=== PATIENT | male | born 1945 | race Caucasian/White ===

== ENCOUNTER → 2017-08-17 15:12 | Outpatient (CLI) | payer OTHER, SELFPAY ==
--- NOTE | 2017-08-17 15:16 | RAD_ITS ---
STUDY: X-RAY CHEST REASON FOR EXAM: Male, 71 years old. Cough TECHNIQUE: Frontal and lateral views of the chest. COMPARISON: None. FINDINGS: The lungs are hyperexpanded. There are coarsened interstitial markings suggestive of mild chronic fibrosis. No gross focal infiltrates. No gross effusions. Normal size heart. Normal mediastinum and arian. Normal visualized pulmonary arteries. Normal visualized aortic arch and descending thoracic aorta. There are diffuse degenerative changes of the visualized thoracic spine. Normal visualized ribs, clavicles, and shoulders. There is no demonstrated abnormality of the visualized soft tissue structures of the upper abdomen. RAD/Chest PA and Lateral IMPRESSION: There are findings consistent with COPD. There is no evidence of acute chest disease. Electronically Signed: Reza Angeles MD at 15:31 EST , Service support ,
== END ==
PROVIDERS: Family Provider Internal Medicine; PCP Internal Medicine; Visit Provider Nurse Practitioner Gerontology
DX: R09.89 Other specified symptoms and signs involving the circulatory and respiratory systems (principal)
CPT/HCPCS: 71046

== ENCOUNTER → 2017-09-13 16:29 | Outpatient (CLI) | payer OTHER, SELFPAY ==
--- NOTE | 2017-09-13 16:37 | CT_ITS ---
STUDY: CT CHEST WITH CONTRAST REASON FOR EXAM: Male, 71 years old. Abnormal chest x-ray. Evaluate for COPD. RADIATION DOSAGE (If Supplied By Facility): CTDIvol = ( 16.55 ) mGy, DLP = ( 773.8 ) mGycm TECHNIQUE: Transaxial imaging was performed following intravenous administration of 100 ml of Isovue 300 contrast material. Coronal and sagittal reformatted images were created. Individualized dose optimization techniques were used for this CT. COMPARISON: None FINDINGS: Evaluation is limited by patient motion. There are no significant emphysematous changes. There are no pulmonary infiltrates or pleural effusions. There is atelectasis noted at the lung bases. There is no pneumothorax. The heart and pericardium are within normal limits. There is no thoracic lymphadenopathy. There is no evidence of thoracic aortic aneurysm. Images through the upper abdomen demonstrate no significant abnormality. There are no destructive osseous lesions. CT/Chest WITH Contrast IMPRESSION: Bibasilar atelectasis. Otherwise, clear lungs. No evidence of COPD. Electronically Signed: Wesley Blount, at 23:24 EDT Tel , Service support ,
[2017-09-13 16:55] LABS: CREATININE FINGERSTICK 0.9 mg/dL (0.70-1.30); EGFR FINGERSTICK > 60.0000 mL/min (>60)
== END ==
PROVIDERS: Family Provider Internal Medicine; PCP Internal Medicine; Visit Provider Internal Medicine
DX: R93.8 Abnormal findings on diagnostic imaging of other specified body structures (principal)
CPT/HCPCS: 71260; Q9967

== ENCOUNTER → 2020-05-27 | Outpatient (CLI) | payer OTHER, SELFPAY | END | disposition home or self-care (01) | PROVIDERS: PCP Internal Medicine; Referring Provider Physician Assistant; Visit Provider Physician Assistant | DX: U07.1 COVID-19 (principal) | CPT/HCPCS: 87635; U0003 ==

== ENCOUNTER 2020-05-31 11:08 | Inpatient (IN) | payer OTHER, MEDICARE, SELFPAY ==
[2020-05-31] VITALS (8 sets, daily range): BP systolic 139–166; BP diastolic 72–79; PULSE 71–80; RESP 16–22; TEMP 36.3–37.9; O2SAT 92–97; BMI 36.0
--- NOTE | 2020-05-31 11:39 | EKG12_ITS ---
Test Reason : SOB Blood Pressure : / mmHG Vent. Rate : 076 BPM Atrial Rate : 076 BPM P-R Int : 162 ms QRS Dur : 104 ms QT Int : 404 ms P-R-T Axes : 018 066 046 degrees QTc Int : 454 ms Normal sinus rhythm Normal ECG Confirmed by MARGO DÍAZ, LESLI ([id number]), assignment editor EDITH EMERSON ([id number]) on 06/03/2020 1:13:36 PM Referred By: KIRA/ASIF Confirmed By:LESLI ARAGON MD
[2020-05-31 12:18] LABS: Absolute Lymphocyte Count 1.16 X10^3/uL (0.83-4.51); Absolute Neutrophil Count 4.1 X10^3/uL (2.0-7.7); Basophil# 0.01 X10^3/uL; Basophil% 0.2 % (0-1); Eosinophil# 0.08 X10^3/uL; Eosinophils% 1.3 % (0-5); Hematocrit 42.5 % (40-54); Hemoglobin 14.4 g/dL (13.0-16.5); Lymphocyte # 1.16 X10^3/ul (4.0); Lymphocyte % 19.6 % (19-41); Mean Corp Hgb Conc 33.9 g/dL (32-36); Mean Corpuscular Hgb 29.7 pg (27.0-32.0); Mean Corpuscular Volume 87.6 fL (80-94); Mean Platelet Vol. 10.1 fl (6.2-12.0); Monocyte# 0.56 X10^3/uL; Monocyte% 9.4 % (0-10); NRBC Flagged by Analyzer 0 % (0-5); Neutrophil # 4.09 X10^3/uL (2.7-7.7); Platelet Count 192 K/mm3 (150-450); RBC Distribution Width CV 11.9 % (11.6-14.6); RBC Distribution Width SD 38.5 fl (35.1-43.9); Red Blood Count 4.85 M/mm3 (4.6-6.2); White Blood Count 5.9 K/mm3 (4.4-11.0)
[2020-05-31 12:24] LABS: Anion Gap 3 (5-15); BUN 13 mg/dL (7-18); BUN/Creat Ratio 13.6 RATIO (10-20); Calcium,Total 8.9 mg/dL (8.5-10.1); Chloride 100 mmol/L (98-107); Creatinine, Serum 0.96 mg/dL (0.70-1.30); EST Glomerular Filtration Rate 82 mL/min (>60); Est Glom Filt Rate - Afr Amer 99 mL/min (>60); Estimated Creatinine Clearance 70.76 ml/min; Glucose 188 mg/dL (74-106); Potassium 3.8 mmol/L (3.5-5.1); Sodium Level 137 mmol/L (136-145)
--- NOTE | 2020-05-31 12:40 | RAD_ITS ---
STUDY: X-RAY CHEST REASON FOR EXAM: Male, 74 years old. COVID + Fina, O2 sats in 80s at home. 92% in triage. Sob, cough. TECHNIQUE: Single AP portable view of the chest. COMPARISON: Comparison is made with prior study dated 08/17/2012. FINDINGS: EKG electrodes are seen. Patchy infiltrates seen in the peripheral lateral aspect of the right lower and left lower lobes. There is no demonstrated pleural abnormality. Mild periventricular Normal mediastinum and arian. Normal visualized pulmonary arteries. Normal visualized aortic arch and descending thoracic aorta. There are diffuse degenerative changes of the visualized thoracic spine. Normal visualized ribs, clavicles, and shoulders. There is no demonstrated abnormality of the visualized soft tissue structures of the upper abdomen. RAD/Chest 1 View (Portable) IMPRESSION: Focal bibasilar infiltrates in the peripheral aspects of both right and left lower lobes. Electronically Signed: Jose May, at 12:56 EST , Service support ,
--- NOTE | 2020-05-31 13:28 | ED.VISSUMM ---
- ER Visit Summary Date of Service: 05/31/20 Chief Complaint: Shortness of breath History of Present Illness: The patient is a 74 M presenting with shortness of breath. Patient states he was tested for Covid the day after . He states the test returned positive on Wednesday. His family has also tested positive for Covid. He has been monitoring his pulse ox at home. He was told to come to the ED if his pulse ox dropped in the 80s. He states he was 86% on room air at home. He complains of subjective fever, shortness of breath, cough, diarrhea, myalgias. He states he has mild chest pain only when he coughs, otherwise no chest pain. Denies other complaints. Physical Examination: Vitals are stable. Patient is afebrile. Alert no acute distress. HEENT exam is unremarkable. Neck is supple. Lungs are clear and equal bilaterally. Heart is regular rate and rhythm. Abdomen is soft nontender nondistended. Extremities are unremarkable. Skin is warm and dry. No focal neurologic deficit. Remainder of exam is unremarkable. Emergency Department Course and Treatment: EKG is sinus rhythm rate of 76 with no acute ischemic changes. CBC, chemistries unremarkable other than glucose 188. Troponin 0.136. Chest x-ray shows Focal bibasilar infiltrates in the peripheral aspects of both right and left lower lobes. Patient was given Decadron, aspirin. He is resting comfortably on reevaluation. Discussed with hospitalist for admission. Disposition: Admission Impression: Covid pneumonia, hypoxia, abnormal troponin This note was generated with [employer] dictation software. It may contain incorrect words, spelling, and punctuation that were not noted in review of the chart prior to signing ED Disposition - Plan for ED Patient: Referrals: Randi Urbano DO [Primary Care Provider] -
[2020-05-31] MEDS: Aspirin 325 MG Tablet PO (14:19)
--- NOTE | 2020-05-31 15:53 | CON.PCM_ITS ---
Problem List (1) COVID-19 Status: Acute Reason for Consult: covid Consulted by: Dr. Calvillo History of Present Illness: The patient is a 74 year old M with h/o asthma, presented with covid, about 2 weeks of symptoms, reports white sputum, cough, dyspnea, mild fatigue. No change in taste or smell, no chest pain, no n/v. One or two episodes of diarrhea. and son were also sick and (+). Came to ED, hypoxic, admitted. Full ROS performed and neg except as noted above. - Medical History Surgical History: reviewed Allergies/Adverse Reactions: Allergies No Known Allergies Allergy (Verified 05/31/20 11:09) Home Medications: Ambulatory Orders Medication Instructions Recorded Citalopram [Celexa] 20 mg PO DAILY 05/31/20 Empagliflozin [Jardiance] 10 mg PO DAILY 05/31/20 Ibuprofen 400 mg PO DAILY PRN PRN 05/31/20 Sitagliptin Phosphate [Januvia] 100 mg PO DAILY 05/31/20 Valacyclovir HCl [Valacyclovir] 500 mg PO DAILY PRN PRN 05/31/20 - Social History Tobacco Use: non-smoker Vital Signs Temp Pulse Resp BP Pulse Ox 98.2 F 71 22 H 166/77 H 97 05/31/20 14:19 05/31/20 14:19 05/31/20 14:19 05/31/20 14:19 05/31/20 14:19 Oxygen Delivery Method Room Air Weight: 113.852 kg Body Mass Index (BMI) 36.0 Laboratory Tests Past 24 Hrs 05/31/20 05/31/20 05/31/20 11:59 11:59 11:59 WBC 5.9 RBC 4.85 Hgb 14.4 Hct 42.5 MCV 87.6 MCH 29.7 MCHC 33.9 RDW Std Deviation 38.5 RDW Coeff of Bekah 11.9 Plt Count 192 MPV 10.1 Immature Gran % (Auto) 0.500 Neut % (Auto) 69.0 Lymph % (Auto) 19.6 [place] % (Auto) 9.4 Eos % (Auto) 1.3 Baso % (Auto) 0.2 Absolute Neuts (auto) 4.1 Absolute Lymphs (auto) 1.16 Nucleated RBC % 0 Sodium 137 Potassium 3.8 Chloride 100 Carbon Dioxide 34.0 H Anion Gap 3 L BUN 13 Creatinine 0.96 Estim Creat Clear Calc 70.76 Est GFR (MDRD) Af Amer 99 Est GFR (MDRD) Non-Af 82 BUN/Creatinine Ratio 13.6 Glucose 188 H Calcium 8.9 Total Bilirubin Pending Direct Bilirubin Pending AST Pending ALT Pending Alkaline Phosphatase Pending Troponin I 0.136 H Pending Total Protein Pending Albumin Pending - Other Studies Radiology: [] reviewed Other Studies: [] Route of nutrition/ use of supplements: [] Nutritional Intake: [] IV Site: [] Yadav Catheter: [] - Physical Exam General: Alert, Oriented x3, Cooperative, No apparent distress HEENT: Atraumatic, PERRLA, EOMI Neck: Supple, No Nodes Lungs: Diminished Cardiovascular: Regular rate, Regular Rhythm Abdomen: Soft, Non Tender, Non-Distended Extremities: No edema Skin: No rashes IV Site: Peripheral, without redness Musculoskeletal: No Tenderness to Palpation of Joints or Extremities Neurological: Cranial nerves II-XII grossly intact - Assessment/Plan Antibiotics: [] Assessment/Plan: [] covid with hypoxia - sx started about 2 weeks ago but still symptomatic with some aches, fever, worsening cough and dyspnea. Will order dex to start today, ok to start remdesivir if ALT less than 10x ULN. D/w nursing re: holding until LFTs are back. Will check trop, bnp, and d-dimer now. Initial trop was elevated. On lovenox 40mg bid. Will follow, thank you, d/w Dr. Calvillo
[2020-05-31 16:53] LABS: BNP,B-Type NATRIURETIC PEPTIDE 115.5 pg/mL (0-100)
[2020-05-31 16:54] LABS: D-Dimer Quantitative (DVT/PE) 0.46 FEU/ug/m (0.27-0.49)
[2020-05-31 17:00] LABS: AST(SGOT) 22 U/L (15-37); Alanine Aminotransfer ALT/SGPT 36 U/L (16-61); Albumin, Serum 3.4 g/dL (3.2-5.0); Alkaline Phosphatase 89 U/L (45-117); Bilirubin, Direct 0.18 mg/dL (0.00-0.30); Globulin 4.7 g/dL (2.2-4.2); Protein, Total 8.1 g/dL (6.4-8.2)
[2020-05-31] MEDS: dexAMETHasone 4 MG Tablet 6 MG PO (17:13)
[2020-05-31 17:30] LABS: Bedside Glucose 157 mg/dL (70-110)
[2020-05-31] MEDS: Enoxaparin 40 MG/0.4 ML Syringe SC (17:44)
[2020-05-31] MEDS: Insulin Lispro 100 UNIT/ML INSULN.PEN SC ×2 (17:44→23:35)
--- NOTE | 2020-05-31 20:26 | HP.PCM_ITS ---
Problem List (1) Shortness of breath Status: Acute History of Present Illness Date of Admission: 05/31/20 Chief Complaint: Shortness of breath, abnormal pulse ox, fever, nonproductive cough The patient is a 74 year old M who was seen in the emergency room at [facility] with a chief complaint of shortness of breath along with cough, myalgias, fever, and diarrhea over the past few days. Patient was tested for Covid 19 the day after Thanksgiving, the test returned positive on 05/28/2020. Patient had a pulse oximeter at home today which was low in the 80s. Work-up in the emergency room included a chest x-ray which showed focal bibasi lar infiltrates, troponin was slightly elevated at 1.136, glucose was 188, CBC was unremarkable. Patient's beta natruretic peptide was slightly elevated at 115. EKG showed no evidence of ischemic changes. Patient will be admitted to [place] [address] for COVID-19 pneumonia, he will be placed on remdesivir and dexamethasone, patient will be seen in consultation by infectious diseases. Past Medical History Allergies No Known Allergies Allergy (Verified 05/31/20 11:09) Home Medications: Ambulatory Orders Medication Instructions Recorded Citalopram [Celexa] 20 mg PO QHS 05/31/20 Empagliflozin [Jardiance] 10 mg PO QHS 05/31/20 Ibuprofen 400 mg PO DAILY PRN PRN 05/31/20 Sitagliptin Phosphate [Januvia] 100 mg PO QHS 05/31/20 Valacyclovir HCl [Valacyclovir] 500 mg PO DAILY PRN PRN 05/31/20 Surgical History: noncontributory Psychiatric History: No pertinent psych hx Lives: Spouse/ Significant Other Smoking Status: Former smoker Tobacco Use: Cigarettes, Pipe Alcohol: None Drugs: None - *Family History Maternal History Items: No pertinent history Paternal History Items: No pertinent history Review of Systems Constitutional: Reports: Weakness, Fatigue. Denies: Anorexia, Chills, Fever, Night Sweats, Weight Change Eyes: Denies: Cataracts, Conjunctivae Inflammation, Double vision, Drainage HEENT: Denies: Difficulty Swallowing, Dysphasia, Ear Pain, Eye Pain, Nasal bleeding, Nasal Congestion, Post Nasal Drip Cardiovascular: Denies: Chest Pain, Claudication, Chest Pressure, Chest Tightness, Edema, Heaviness, Palpitations Respiratory: Reports: Shortness of Breath, Shortness of breath at rest, Shortness of breath upon exertion. Denies: Cough, Hemoptysis, Pleuritic Pain Gastrointestinal: Denies: Abdominal Pain, Constipation, Diarrhea, Hematemesis, Hematochezia, Nausea, Melena, Vomiting Genitourinary: Denies: Dysuria, Frequency, Hematuria, Hesitancy, Urgency Musculoskeletal: Denies: Back Pain, Foot Pain, Hand Pain, Joint Pain, Joint stiffness, Joint swelling, Joint Tenderness, Leg Pain Skin: Denies: Dryness, Jaundice, Pruritis, Rash Neurological: Denies: Blurred vision, Double vision, Change in Speech, Slurred speech, Difficulty swallowing, Focal weakness, Headaches, Incoordination, Numbness, Tingling Psychiatric: Denies: Anxiety, Depression, Homicidal Ideations, Suicidal Ideations Endocrine: Denies: Change in Body Habitus, Heat/ Cold Intolerance, Polydipsia, Polyuria Hematologic/ Lymphatic: Denies: Adenopathy, Anemia, Easy Bruising, Easy Bleeding, Petechiae, Purpura VTE Information - Inpt Only VTE Present on Admission: No VTE Mechan Device Prophylaxis: None VTE Pharm Prophylaxis ordered?: Yes Patient Problems: Active and Suspected Problems COVID-19 (Acute) Shortness of breath (Acute) - Physical Exam Vitals/I&O's: Vital Signs Temp Pulse Resp BP Pulse Ox 100.3 F H 78 18 139/79 H 95 05/31/20 15:56 05/31/20 15:56 05/31/20 17:30 05/31/20 15:56 05/31/20 15:56 Oxygen Flow Rate (L/min) 2 Oxygen Delivery Method Nasal Cannula Weight: 113.897 kg Body Mass Index (BMI) 36.0 Intake and Output for Last 24 Hours 05/29/20 05/30/20 05/31/20 23:59 23:59 23:59 Intake Total 250 / 250 Output Total 250 / 250 Balance 0 / 0 General: Alert, Oriented x3, Cooperative, No apparent distress, Well developed, Well nourished HEENT: Atraumatic, PERRLA, EOMI, Normocephalic Oral: Moist Mucosa Neck: Supple, No JVD, Negative Carotid Bruits, No Nuchal Rigidity, Trachea M idline, Thyroid Normal Size and Texture Lungs: Clear to auscultation, Normal air movement, No rhonchi, No wheeze, No rales Cardiovascular: Regular rate, Regular Rhythm, Normal S1, Normal S2, No murmurs, PMI Normal, No rub noted, No Gallop Abdomen: Bowel Sounds Present, Soft, Non Tender, Non-Distended, No hernias noted Extremities: No clubbing, No cyanosis, No edema, Capillary Refill Less than 3 Seconds Skin: No rashes, No breakdown Musculoskeletal: No Tenderness to Palpation of Joints or Extremities Neurological: Cranial nerves II-XII grossly intact, Neuro grossly intact, Sensory exam intact to light touch and pain, Coordination normal Psych/Mental Status: Normal Affect, Appropriate, Alert and oriented to time, place, person, mood and affect Laboratory Results 05/31/20 11:59: WBC 5.9, RBC 4.85, Hgb 14.4, Hct 42.5, MCV 87.6, MCH 29.7, MCHC 33.9, RDW Std Deviation 38.5, RDW Coeff of Bekah 11.9, Plt Count 192, MPV 10.1, Immature Gran % (Auto) 0.500, Neut % (Auto) 69.0, Lymph % (Auto) 19.6, [place] % (Auto) 9.4, Eos % (Auto) 1.3, Baso % (Auto) 0.2, Absolute Neuts (auto) 4.1, Absolute Lymphs (auto) 1.16, Nucleated RBC % 0 05/31/20 11:59: Sodium 137, Potassium 3.8, Chloride 100, Carbon Dioxide 34.0 H, Anion Gap 3 L, BUN 13, Creatinine 0.96, Estim Creat Clear Calc 70.76, Est GFR (MDRD) Af Amer 99, Est GFR (MDRD) Non-Af 82, BUN/Creatinine Ratio 13.6, Glucose 188 H, Calcium 8.9, Troponin I 0.136 H 05/31/20 16:12: Total Bilirubin 0.60, Direct Bilirubin 0.18, AST 22, ALT 36, Alkaline Phosphatase 89, Troponin I 0.130 H, Total Protein 8.1, Albumin 3.4, Globulin 4.7 H 05/31/20 16:12: D-Dimer Quant (PE/DVT) 0.46 05/31/20 16:12: B-Natriuretic Peptide 115.5 H 05/31/20 17:10: POC Glucose 157 H 05/31/20 19:01: Troponin I 0.121 H Current Medications Citalopram Hydrobromide (Citalopram 20 Mg Tablet) 20 mg PO DAILY [facility] Dexamethasone (Dexamethasone 4 Mg Tablet) 6 mg PO DAILY [facility] Stop: 06/09/20 10:01 Last Admin: 05/31/20 17:13 Dose: 6 mg Documented by: Empagliflozin (Empagliflozin 10 Mg Tablet) 10 mg PO DAILY [facility] Enoxaparin Sodium (Enoxaparin 40 Mg/0.4 Ml Syringe) 40 mg SC BID [facility] Last Admin: 05/31/20 17:44 Dose: 40 mg Documented by: Remdesivir 100 mg/ Sodium (Chloride) 250 mls @ 125 mls/hr IV DAILY [facility] Stop: 06/04/20 11:59 Ibuprofen (Ibuprofen 400 Mg Tablet) 400 mg PO DAILY PRN PRN PRN Reason: Pain 1-10 or Fever Influenza Virus Vaccine Quadrival (Influenza Vaccine (6mos+)/Pf 0.5 Ml Syringe) 0.5 ml IM .ONCE ONE Stop: 06/01/20 10:01 Insulin Human Lispro (Insulin Lispro 100 Unit/Ml Insuln.Pen) 0 unit SC ACHS SC H; Protocol Last Admin: 05/31/20 17:44 Dose: 2 units Documented by: Linagliptin (Linagliptin 5 Mg Tablet) 5 mg PO DAILY [facility] Nutritional Formula (Lactose Free) (Glucerna Shake 120 Ml Liquid) 120 ml PO 4X/DAY [facility] Last Admin: 05/31/20 17:50 Dose: Not Given Documented by: Ondansetron HCl (Ondansetron 4 Mg/2 Ml Vial) 4 mg IV Q8H PRN PRN PRN Reason: NAUSEA/VOMITING Senna/Docusate Sodium (Senna/Docusate Sodium 1 Tablet) 2 tablet PO DAILY PRN PRN PRN Reason: CONSTIPATION Sodium Chloride (0.9% Saline Lock 10 Ml Syringe) 10 - 40 ml IV UD PRN PRN Reason: SALINE FLUSH Assessment/Plan All Active Problems COVID-19 (Acute) Shortness of breath (Acute) Contact with and (suspected) exposure to other viral communicable diseases (Acute) #1 COVID-19 pneumonia-patient will be admitted to [facility], he will be placed on remdesivir and dexamethasone, he will be seen in consultation by infectious diseases #2 hypoxia secondary to #1-patient's pulse ox will be monitored #3 type 2 diabetes-patient's blood sugars will be monitored #4 chronic depression-patient will remain on Celexa #5 chronic recurrent genital herpes-patient takes valacyclovir intermittently for flareups, he does not take it on a daily basis. Inpatient E&M: 14287 Init Hosp L3
[2020-05-31] MEDS: Glucerna Shake 120 ML LIQUID PO (23:31)
[2020-05-31] MEDS: guaiFENesin 10 ML UDC (200MG/10ML) PO (23:35)
[2020-06-01 00:36] LABS: Bedside Glucose 279 mg/dL (70-110)
[2020-06-01 03:01] VITALS: BP 162/80; PULSE 71; RESP 18; TEMP 36.5; O2SAT 94
[2020-06-01] MEDS: guaiFENesin 10 ML UDC (200MG/10ML) PO ×2 (03:09→21:49)
[2020-06-01] MEDS: Insulin Lispro 100 UNIT/ML INSULN.PEN SC ×4 (06:30→21:53)
[2020-06-01 07:08] LABS: Hemoglobin 14.1 g/dL (13.0-16.5); Mean Corp Hgb Conc 33.6 g/dL (32-36); Mean Corpuscular Volume 86.4 fL (80-94); Platelet Count 197 K/mm3 (150-450); RBC Distribution Width CV 11.8 % (11.6-14.6); RBC Distribution Width SD 37.7 fl (35.1-43.9); Red Blood Count 4.86 M/mm3 (4.6-6.2); White Blood Count 4.8 K/mm3 (4.4-11.0)
[2020-06-01 07:20] VITALS: O2SAT 94
[2020-06-01 07:49] LABS: ALB/GLOB Ratio 0.7 RATIO (0.9-2.4); AST(SGOT) 21 U/L (15-37); Alanine Aminotransfer ALT/SGPT 39 U/L (16-61); Albumin, Serum 3.1 g/dL (3.2-5.0); Alkaline Phosphatase 89 U/L (45-117); Anion Gap 6 (5-15); BUN 13 mg/dL (7-18); BUN/Creat Ratio 17.6 RATIO (10-20); Calcium,Total 9.1 mg/dL (8.5-10.1); Chloride 101 mmol/L (98-107); Creatinine, Serum 0.74 mg/dL (0.70-1.30); EST Glomerular Filtration Rate 111 mL/min (>60); Est Glom Filt Rate - Afr Amer 134 mL/min (>60); Estimated Creatinine Clearance 67.93 ml/min; Globulin 4.6 g/dL (2.2-4.2); Glucose 204 mg/dL (74-106); Protein, Total 7.7 g/dL (6.4-8.2); Sodium Level 134 mmol/L (136-145)
[2020-06-01 08:30] VITALS: O2SAT 87
[2020-06-01 08:46] VITALS: BP 149/76; PULSE 78; RESP 18; TEMP 36.4; O2SAT 92
[2020-06-01] MEDS: dexAMETHasone 4 MG Tablet 6 MG PO (08:47)
[2020-06-01] MEDS: Enoxaparin 40 MG/0.4 ML Syringe SC ×2 (08:47→21:49)
[2020-06-01] MEDS: Empagliflozin 10 MG Tablet PO (08:47)
[2020-06-01] MEDS: LINAGLIPTIN 5 MG TABLET PO (08:47)
[2020-06-01] MEDS: Citalopram 20 MG Tablet PO (08:47)
[2020-06-01 10:40] LABS: Bedside Glucose 201 mg/dL (70-110)
[2020-06-01] MEDS: Glucerna Shake 120 ML LIQUID PO (10:45)
[2020-06-01] MEDS: 0.9% Saline Lock 10 ML Syringe IV (10:45)
[2020-06-01 11:26] LABS: Bedside Glucose 266 mg/dL (70-110)
--- NOTE | 2020-06-01 13:33 | PN_ITS ---
Patient Problems: Active and Suspected Problems COVID-19 (Acute) Shortness of breath (Acute) Subjective: Patient seen and examined. He was admitted with a complaint of shortness of breath and found to be Covid positive. He feels much better this morning. He feels like his breathing is improving. Remains on 2 L of oxygen. Review of systems otherwise negative. Vitals/I&O's: Vital Signs Temp Pulse Resp BP Pulse Ox 97.6 F L 78 18 149/76 H 92 06/01/20 08:46 06/01/20 08:46 06/01/20 08:46 06/01/20 08:46 06/01/20 08:46 Oxygen Flow Rate (L/min) 2 Oxygen Delivery Method Nasal Cannula Weight: 251 lb 1.6 oz Body Mass Index (BMI) 36.0 Intake and Output for Last 24 Hours 05/30/20 05/31/20 06/01/20 23:59 23:59 23:59 Intake Total 250 / 250 Output Total 250 / 250 Balance 0 / 0 General: Alert, Oriented x3, Cooperative, No apparent distress HEENT: Atraumatic, PERRLA, EOMI, Normocephalic Oral: Dry Mucosa Neck: Supple, No JVD, Negative Carotid Bruits Lungs: - - diminished breath sounds bibasally, no wheezes or crackles. on 2L of oxygen. Cardiovascular: Regular rate, Regular Rhythm, Normal S1, Normal S2, No murmurs Abdomen: Bowel Sounds Present, Soft, Non Tender, Non-Distended, No Hepato- splenomegaly Extremities: No clubbing, No cyanosis, No edema, Capillary Refill Less than 3 Seconds Skin: No rashes, No breakdown Musculoskeletal: No Tenderness to Palpation of Joints or Extremities Lymphatic: No Cervical, Supraclavicular, or Inguinal Adenopathy Neurological: Cranial nerves II-XII grossly intact, Neuro grossly intact, Motor Exam 5/5 strength throughout Psych/Mental Status: Normal Affect, Appropriate, Alert and oriented to time, place, person, mood and affect Laboratory Results 05/31/20 16:12: Total Bilirubin 0.60, Direct Bilirubin 0.18, AST 22, ALT 36, Alkaline Phosphatase 89, Troponin I 0.130 H, Total Protein 8.1, Albumin 3.4, Globulin 4.7 H 05/31/20 16:12: D-Dimer Quant (PE/DVT) 0.46 05/31/20 16:12: B-Natriuretic Peptide 115.5 H 05/31/20 17:10: POC Glucose 157 H 05/31/20 19:01: Troponin I 0.121 H 05/31/20 23:34: POC Glucose 279 H 06/01/20 06:28: POC Glucose 201 H 06/01/20 06:40: WBC 4.8, RBC 4.86, Hgb 14.1, Hct 42.0, MCV 86.4, MCH 29.0, MCHC 33.6, RDW Std Deviation 37.7, RDW Coeff of Bekah 11.8, Plt Count 197, MPV 10.0 06/01/20 06:40: Sodium 134 L, Potassium 4.0, Chloride 101, Carbon Dioxide 27.0, Anion Gap 6, BUN 13, Creatinine 0.74, Estim Creat Clear Calc 67.93, Est GFR (MDRD) Af Amer 134, Est GFR (MDRD) Non-Af 111, BUN/Creatinine Ratio 17.6, Glucose 204 H, Calcium 9.1, Total Bilirubin 0.40, AST 21, ALT 39, Alkaline Phosphatase 89, Total Protein 7.7, Albumin 3.1 L, Globulin 4.6 H, Albumin/Globulin Ratio 0.7 L 06/01/20 10:49: POC Glucose 266 H Diagnostic Data Chest X-Ray 05/31/20 12:40 IMPRESSION: Focal bibasilar infiltrates in the peripheral aspects of both right and left lower lobes. Electronically Signed: Jose Yadira, at 12:56 EST , Service support , Current Medications Citalopram Hydrobromide (Citalopram 20 Mg Tablet) 20 mg PO DAILY [facility] Last Admin: 06/01/20 08:47 Dose: 20 mg Documented by: Dexamethasone (Dexamethasone 4 Mg Tablet) 6 mg PO DAILY [facility] Stop: 06/09/20 10:01 Last Admin: 06/01/20 08:47 Dose: 6 mg Documented by: Empagliflozin (Empagliflozin 10 Mg Tablet) 10 mg PO DAILY [facility] Last Admin: 06/01/20 08:47 Dose: 10 mg Documented by: Enoxaparin Sodium (Enoxaparin 40 Mg/0.4 Ml Syringe) 40 mg SC BID [facility] Last Admin: 06/01/20 08:47 Dose: 40 mg Documented by: Guaifenesin (Guaifenesin 10 Ml Udc (200mg/10ml)) 10 ml PO Q4H PRN PRN PRN Reason: COUGH Last Admin: 06/01/20 03:09 Dose: 10 ml Documented by: Remdesivir 100 mg/ Sodium (Chloride) 250 mls @ 125 mls/hr IV DAILY [facility] Stop: 06/04/20 11:59 Last Admin: 06/01/20 10:44 Dose: 125 mls/hr Documented by: Ibuprofen (Ibuprofen 400 Mg Tablet) 400 mg PO DAILY PRN PRN PRN Reason: Pain 1-10 or Fever Insulin Human Lispro (Insulin Lispro 100 Unit/Ml Insuln.Pen) 0 unit SC ACHS [facility]; Protocol Last Admin: 06/01/20 10:49 Dose: 6 units Documented by: Linagliptin (Linagliptin 5 Mg Tablet) 5 mg PO DAILY [facility] Last Admin: 06/01/20 08:47 Dose: 5 mg Documented by: Nutritional Formula (Lactose Free) (Glucerna Shake 120 Ml Liquid) 120 ml PO 4X/DAY [facility] Last Admin: 06/01/20 10:45 Dose: 120 ml Documented by: Ondansetron HCl (Ondansetron 4 Mg/2 Ml Vial) 4 mg IV Q8H PRN PRN PRN Reason: NAUSEA/VOMITING Senna/Docusate Sodium (Senna/Docusate Sodium 1 Tablet) 2 tablet PO DAILY PRN PRN PRN Reason: CONSTIPATION Sodium Chloride (0.9% Saline Lock 10 Ml Syringe) 10 - 40 ml IV UD PRN PRN Reason: SALINE FLUSH Last Admin: 06/01/20 10:45 Dose: 10 ml Documented by: Medical Necessity - Tobacco Use Smoking Status: Former smoker Tobacco Use: Cigarettes, Pipe Assessment/Plan All Active Problems COVID-19 (Acute) Shortness of breath (Acute) Contact with and (suspected) exposure to other viral communicable diseases (Acute) #Acute hypoxic respiratory insufficiency due to COVID 19 infection * on 2L of oxygen by nasal canula * on decadrone and remdesivir * titrate oxygen to maintain sats >90% * #COVID 19 infection: as above #Intermediate troponins. * Initial troponin was 0.136 and subsequently trended down to 0.121. * Patient did not have any chest pain. * This likely related to COVID-19 infection. * Will monitor for now. * #History of asthma; on breathing treatment with bronchodilators # Chronic depression; on Celexa #Type 2 diabetes mellitus: On Jardiance. Insulin sliding scale. Accu-Cheks AC at bedtime. #Recurrent herpes: on vaclacyclovir for flareups DVT prophylaxis; lovenox 40mg bid. D dimer was only 0.46 Inpatient E&M: 58045 Subs Hosp L2
--- NOTE | 2020-06-01 13:46 | PCM.NTREPORT ---
Nutrition Therapy Report - History Nutrition Services has been consulted to:: Manage nutrient details of diet order Current diet / nutrition support order:: consistent cho 1800 linda - Anthropometric Measurements Height:: 5 ft 10 in Weight:: 113.897 kg Body Mass Index (BMI):: 36.0 - Relevant Labs Relevant Labs:: Sodium 134 mmol/L (136-145) L 06/01/20 06:40 Carbon Dioxide 34.0 mmol/L (21.0-32.0) H 05/31/20 11:59 Anion Gap 3 (5-15) L 05/31/20 11:59 Glucose 204 mg/dL (74-106) H 06/01/20 06:40 Troponin I 0.121 ng/mL (<0.045) H 05/31/20 19:01 B-Natriuretic Peptide 115.5 pg/mL (0-100) H 05/31/20 16:12 Albumin 3.1 g/dL (3.2-5.0) L 06/01/20 06:40 Globulin 4.6 g/dL (2.2-4.2) H 06/01/20 06:40 Albumin/Globulin Ratio 0.7 RATIO (0.9-2.4) L 06/01/20 06:40 - Assessment Food / Nutrition-Related History:: Talked to pt on phone r/t covid isolation. Pt reports regular diet at home and doesn't check bld gluc levels - only gets done at the doctor's office. Declines need for diet education at this time. He has been eating poorly x 2 wks, but improved intake now. No issues eating/swallowing noted. Reports decreased intake d/t covid and had been reading a good book so skipped meals to read. UBW: 119.748 kg - wt loss of 4.9% x 2 wks (sig for malnutrition). Accepting of ONS. On steroid which may further elevate gluc levels. [ End ] - Nutrition Diagnosis Problem / Etiology / Signs & Symptoms (PES):: Pt w/ s/s of malnutrition r/t covid aeb 4.9% wt loss and <50% po intake at meals x 2 wks. Evidence of Malnutrition Exists:: Yes Severe PCM:: Acute Illness - Nutrition Intervention Nutrition Prescription:: [id number] linda / 90-110 gm pro/day - Food / Nutrient Delivery Interventions Summary of nutrition intervention:: Will liberalize diet to Regular d/t s/s of malnutrition. Will change ONS from medpass to meals to help cluster nsg tasks. [ End ] Nutrition education provided?: No - MNT Monitoring Further MNT monitoring and evaluation required?: Yes MNT Follow-up in:: 3-5 days - please call RD/LD if questions [phone]
[2020-06-01 13:49] VITALS: BMI 36.0
[2020-06-01 14:24] VITALS: BP 134/75; PULSE 72; RESP 18; TEMP 36.6; O2SAT 95
--- NOTE | 2020-06-01 14:40 | CASEMGMT ---
RN CM called patient in room for initial transition planning/care coordination assessment. RN CM introduced self and role at [facility]. Patient alert and oriented. Patient willing to participate in assessment and is able to answer all questions appropriately. Care providers, pharmacy, and demographics verified. Patient wishes to discharge home, denies need for home health at this time. Patient states he has no further needs or concerns at this time. CM to follow for discharge planning needs that may arise. PCP: Sundeep Specialists: none Preferred Pharmacy: [facility] Insurance: PRITESH Wilkins Prescription Benefit: yes Living Will/HPOA: yes López Emmanuel LNOK: Living Arrangements: Patient lives with . Patient state he is independent at home. Transportation: self, DME/HHC: Patient denies DME or previous HHC. After reviewing in-network DME companies, patient agreeable to [facility] for possible home oxygen at discharge. Disposition Plan: Patient to discharge home with family support and follow-up plans in place. Shani ROMEO, RN, CM
[2020-06-01 16:40] LABS: Bedside Glucose 214 mg/dL (70-110)
[2020-06-01 20:24] VITALS: BP 153/78; PULSE 65; RESP 16; TEMP 36.6; O2SAT 94
[2020-06-01 22:20] LABS: Bedside Glucose 220 mg/dL (70-110)
[2020-06-02] VITALS (8 sets, daily range): BP systolic 136–149; BP diastolic 65–90; PULSE 60–76; RESP 16–20; TEMP 36.5–37.4; O2SAT 92–96
[2020-06-02 04:59] LABS: Hematocrit 42.5 % (40-54); Hemoglobin 14.3 g/dL (13.0-16.5); Mean Corp Hgb Conc 33.6 g/dL (32-36); Mean Corpuscular Hgb 29.1 pg (27.0-32.0); Mean Corpuscular Volume 86.6 fL (80-94); Platelet Count 214 K/mm3 (150-450); RBC Distribution Width CV 11.8 % (11.6-14.6); RBC Distribution Width SD 37.7 fl (35.1-43.9); Red Blood Count 4.91 M/mm3 (4.6-6.2); White Blood Count 7.7 K/mm3 (4.4-11.0)
[2020-06-02 05:23] LABS: ALB/GLOB Ratio 0.7 RATIO (0.9-2.4); AST(SGOT) 17 U/L (15-37); Alanine Aminotransfer ALT/SGPT 36 U/L (16-61); Alkaline Phosphatase 78 U/L (45-117); Anion Gap 7 (5-15); BUN 16 mg/dL (7-18); BUN/Creat Ratio 21.7 RATIO (10-20); Chloride 102 mmol/L (98-107); Creatinine, Serum 0.74 mg/dL (0.70-1.30); EST Glomerular Filtration Rate 111 mL/min (>60); Est Glom Filt Rate - Afr Amer 134 mL/min (>60); Estimated Creatinine Clearance 67.93 ml/min; Globulin 4.4 g/dL (2.2-4.2); Glucose 156 mg/dL (74-106); Potassium 3.9 mmol/L (3.5-5.1); Protein, Total 7.4 g/dL (6.4-8.2); Sodium Level 137 mmol/L (136-145)
[2020-06-02 06:55] LABS: Bedside Glucose 148 mg/dL (70-110)
[2020-06-02] MEDS: dexAMETHasone 4 MG Tablet 6 MG PO (09:50)
[2020-06-02] MEDS: Enoxaparin 40 MG/0.4 ML Syringe SC ×2 (09:50→23:07)
[2020-06-02] MEDS: Empagliflozin 10 MG Tablet PO (09:51)
[2020-06-02] MEDS: LINAGLIPTIN 5 MG TABLET PO (09:51)
[2020-06-02] MEDS: Citalopram 20 MG Tablet PO (09:52)
--- NOTE | 2020-06-02 11:54 | PN_ITS ---
Patient Problems: Active and Suspected Problems COVID-19 (Acute) Shortness of breath (Acute) Subjective: Patient seen and examined. He complains of feeling of tightness in his lungs. He remains on 2 L of oxygen and feels like his breathing is getting better. He denies any chest pain, palpitations, dizziness, nausea vomiting or diarrhea. Review of systems otherwise negative. Vitals/I&O's: Vital Signs Temp Pulse Resp BP Pulse Ox 97.7 F L 66 18 145/66 H 95 06/02/20 08:24 06/02/20 08:24 06/02/20 08:24 06/02/20 08:24 06/02/20 08:24 Oxygen Flow Rate (L/min) 2 Oxygen Delivery Method Nasal Cannula Weight: 251 lb 1.598 oz Body Mass Index (BMI) 36.0 Intake and Output for Last 24 Hours 05/31/20 06/01/20 06/02/20 23:59 23:59 23:59 Intake Total 250 / 250 750 / 1350 925 / 925 Output Total 250 / 250 Balance 0 / 0 750 / 1350 925 / 925 General: Alert, Oriented x3, Cooperative, No apparent distress HEENT: Atraumatic, PERRLA, EOMI, Normocephalic Oral: Dry Mucosa Neck: Supple, No JVD, Negative Carotid Bruits Lungs: Diminished - diminished breath sounds bibasally, no wheezes or crackles. on 2L of oxygen Cardiovascular: Regular rate, Regular Rhythm, Normal S1, Normal S2, No murmurs Abdomen: Bowel Sounds Present, Soft, Non Tender, Non-Distended, No Hepato- splenomegaly Extremities: No edema, Capillary Refill Less than 3 Seconds Skin: No rashes, No breakdown Musculoskeletal: No Tenderness to Palpation of Joints or Extremities Lymphatic: No Cervical, Supraclavicular, or Inguinal Adenopathy Neurological: Cranial nerves II-XII grossly intact, Neuro grossly intact, Motor Exam 5/5 strength throughout Psych/Mental Status: Normal Affect, Appropriate, Alert and oriented to time, place, person, mood and affect Laboratory Results 06/01/20 16:21: POC Glucose 214 H 06/01/20 21:52: POC Glucose 220 H 06/02/20 04:46: WBC 7.7, RBC 4.91, Hgb 14.3, Hct 42.5, MCV 86.6, MCH 29.1, MCHC 33.6, RDW Std Deviation 37.7, RDW Coeff of Bekah 11.8, Plt Count 214, MPV 10.0 06/02/20 04:46: Sodium 137, Potassium 3.9, Chloride 102, Carbon Dioxide 28.0, Anion Gap 7, BUN 16, Creatinine 0.74, Estim Creat Clear Calc 67.93, Est GFR (MDRD) Af Amer 134, Est GFR (MDRD) Non-Af 111, BUN/Creatinine Ratio 21.7 H, Glucose 156 H, Calcium 9.0, Total Bilirubin 0.40, AST 17, ALT 36, Alkaline Phosphatase 78, Total Protein 7.4, Albumin 3.0 L, Globulin 4.4 H, Albumin/Globulin Ratio 0.7 L 06/02/20 06:47: POC Glucose 148 H Current Medications Citalopram Hydrobromide (Citalopram 20 Mg Tablet) 20 mg PO DAILY [facility] Last Admin: 06/02/20 09:52 Dose: 20 mg Documented by: Dexamethasone (Dexamethasone 4 Mg Tablet) 6 mg PO DAILY [facility] Stop: 06/09/20 10:01 Last Admin: 06/02/20 09:50 Dose: 6 mg Documented by: Empagliflozin (Empagliflozin 10 Mg Tablet) 10 mg PO DAILY [facility] Last Admin: 06/02/20 09:51 Dose: 10 mg Documented by: Enoxaparin Sodium (Enoxaparin 40 Mg/0.4 Ml Syringe) 40 mg SC BID [facility] Last Admin: 06/02/20 09:50 Dose: 40 mg Documented by: Guaifenesin (Guaifenesin 10 Ml Udc (200mg/10ml)) 10 ml PO Q4H PRN PRN PRN Reason: COUGH Last Admin: 06/01/20 21:49 Dose: 10 ml Documented by: Remdesivir 100 mg/ Sodium (Chloride) 250 mls @ 125 mls/hr IV DAILY [facility] Stop: 06/04/20 11:59 Last Admin: 06/02/20 10:53 Dose: 125 mls/hr Documented by: Ibuprofen (Ibuprofen 400 Mg Tablet) 400 mg PO DAILY PRN PRN PRN Reason: Pain 1-10 or Fever Insulin Human Lispro (Insulin Lispro 100 Unit/Ml Insuln.Pen) 0 unit SC [facility]; Protocol Last Admin: 06/02/20 06:48 Dose: Not Given Documented by: Linagliptin (Linagliptin 5 Mg Tablet) 5 mg PO DAILY [facility] Last Admin: 06/02/20 09:51 Dose: 5 mg Documented by: Ondansetron HCl (Ondansetron 4 Mg/2 Ml Vial) 4 mg IV Q8H PRN PRN PRN Reason: NAUSEA/VOMITING Senna/Docusate Sodium (Senna/Docusate Sodium 1 Tablet) 2 tablet PO DAILY PRN PRN PRN Reason: CONSTIPATION Sodium Chloride (0.9% Saline Lock 10 Ml Syringe) 10 - 40 ml IV UD PRN PRN Reason: SALINE FLUSH Last Admin: 06/01/20 10:45 Dose: 10 ml Documented by: STROKE Vital Signs/Narrative: Vital Signs Temp Pulse Resp BP Pulse Ox 06/02/20 08:24 97.7 F L 66 18 145/66 H 95 Medical Necessity - Tobacco Use Smoking Status: Former smoker Tobacco Use: Cigarettes, Pipe Assessment/Plan All Active Problems COVID-19 (Acute) Shortness of breath (Acute) Contact with and (suspected) exposure to other viral communicable diseases (Acute) #Acute hypoxic respiratory insufficiency due to COVID 19 infection * on 2L of oxygen by nasal canula * on decadrone and remdesivir * titrate oxygen to maintain sats >90% * #COVID 19 infection: as above #Intermediate troponins. * Initial troponin was 0.136 and subsequently trended down to 0.121. * Patient did not have any chest pain. * This likely related to COVID-19 infection. * Will monitor for now. to have 2D echo on outpatient basis, or if he develops chest pain during this admission. * #History of asthma; on breathing treatment with bronchodilators # Chronic depression; on Celexa #Type 2 diabetes mellitus: On Jardiance. Insulin sliding scale. Accu-Cheks AC at bedtime. #Recurrent herpes: on vaclacyclovir for flareups DVT prophylaxis; lovenox 40mg bid. Inpatient E&M: 68375 Subs Hosp L2
[2020-06-02] MEDS: Insulin Lispro 100 UNIT/ML INSULN.PEN SC ×3 (12:29→23:07)
[2020-06-02 12:40] LABS: Bedside Glucose 160 mg/dL (70-110)
[2020-06-02 17:45] LABS: Bedside Glucose 182 mg/dL (70-110)
[2020-06-02 23:21] LABS: Bedside Glucose 185 mg/dL (70-110)
[2020-06-03 01:00] VITALS: O2SAT 93
[2020-06-03 04:00] VITALS: BP 163/91; PULSE 68; RESP 16; TEMP 36.6; O2SAT 93
[2020-06-03 06:02] LABS: Hematocrit 42.6 % (40-54); Hemoglobin 14.2 g/dL (13.0-16.5); Mean Corp Hgb Conc 33.3 g/dL (32-36); Mean Corpuscular Hgb 28.8 pg (27.0-32.0); Mean Corpuscular Volume 86.4 fL (80-94); Mean Platelet Vol. 9.9 fl (6.2-12.0); Platelet Count 250 K/mm3 (150-450); RBC Distribution Width CV 11.9 % (11.6-14.6); RBC Distribution Width SD 37.9 fl (35.1-43.9); Red Blood Count 4.93 M/mm3 (4.6-6.2); White Blood Count 7.8 K/mm3 (4.4-11.0)
[2020-06-03 06:35] LABS: ALB/GLOB Ratio 0.6 RATIO (0.9-2.4); AST(SGOT) 21 U/L (15-37); Alanine Aminotransfer ALT/SGPT 37 U/L (16-61); Albumin, Serum 2.9 g/dL (3.2-5.0); Alkaline Phosphatase 73 U/L (45-117); Anion Gap 7 (5-15); BUN 19 mg/dL (7-18); Calcium,Total 8.6 mg/dL (8.5-10.1); Chloride 103 mmol/L (98-107); Creatinine, Serum 0.73 mg/dL (0.70-1.30); EST Glomerular Filtration Rate 112 mL/min (>60); Est Glom Filt Rate - Afr Amer 135 mL/min (>60); Estimated Creatinine Clearance 67.93 ml/min; Globulin 4.5 g/dL (2.2-4.2); Glucose 115 mg/dL (74-106); Protein, Total 7.4 g/dL (6.4-8.2); Sodium Level 135 mmol/L (136-145)
[2020-06-03 07:00] VITALS: O2SAT 93
[2020-06-03 07:00] LABS: Bedside Glucose 120 mg/dL (70-110)
[2020-06-03 10:52] VITALS: BP 147/74; PULSE 69; RESP 18; TEMP 36.8; O2SAT 93
[2020-06-03] MEDS: LINAGLIPTIN 5 MG TABLET PO (11:00)
[2020-06-03] MEDS: Enoxaparin 40 MG/0.4 ML Syringe SC (11:00)
[2020-06-03] MEDS: Citalopram 20 MG Tablet PO (11:00)
[2020-06-03] MEDS: dexAMETHasone 4 MG Tablet 6 MG PO (11:01)
[2020-06-03] MEDS: Empagliflozin 10 MG Tablet PO (11:01)
[2020-06-03 11:16] LABS: Bedside Glucose 140 mg/dL (70-110)
--- NOTE | 2020-06-03 13:08 | DCINST_ITS ---
- Discharge Diagnoses Current Active Problems: Current Active and Chronic Problems COVID-19 (Acute) Shortness of breath (Acute) You will use the following diet at home:: Regular Your food should be the consistency of: Regular Your liquids should be the consistency of: Regular/Thin Discharge Activity: Return to Normal Activity Call your doctor if you observe: Fever of 101 or Higher, Shortness of breath, Chest pain Additional Instructions: Self isolate for at least 21 days since symptoms began or the first postive COVID-19 test (05/27/2020) AND at least one day (24 hours) have passed since resolution of fever without the use of fever-reducing agents AND improvement of symptoms (e.g., cough, shortness of breath) When around people in the same room, wear a face mask. Individuals also in the room should wear a mask. If possible, use a different bathroom and bedroom. Perform adequate hand hygiene. Avoid sharing dishes, glasses, etc. Family members with close contact with you and/or postive for COVID-19 should follow these instructions. Allergies/Adverse Reactions: Allergies No Known Allergies Allergy (Verified 05/31/20 11:09) Medications to take at Discharge Citalopram [Celexa] 20 mg PO QHS 05/31/20 Empagliflozin [Jardiance] 10 mg PO QHS 05/31/20 Ibuprofen 400 mg PO DAILY PRN PRN 05/31/20 Sitagliptin Phosphate [Januvia] 100 mg PO QHS 05/31/20 Valacyclovir HCl [Valacyclovir] 500 mg PO DAILY PRN PRN 05/31/20 Aspirin 81 mg PO DAILY #1 tab.chew 06/03/20 Dexamethasone [Decadron] 6 mg PO DAILY #6 tab 06/03/20 The following prescriptions were given: Aspirin 81 mg PO DAILY #1 tab.chew Dexamethasone [Decadron] 6 mg PO DAILY #6 tab Transmission Status: Received by [id number] Primary Care Physician: Randi Urbano DO [Primary Care Provider] - Within 2 Weeks Test Results: Test results from this visit will be discussed in further detail at your follow- up appointment, if applicable. Please Follow Up With: [facility] When: 2-4 weeks Proposed Discharge Date: 06/03/20
--- NOTE | 2020-06-03 13:11 | PCM.DC.SUM ---
Discharge Date and Diagnosis - Problem List Patient Problems: Active and Suspected Problems COVID-19 (Acute) Shortness of breath (Acute) Date of Admission: 05/31/20 Date of Discharge: 06/03/20 - Primary Discharge Diagnosis Acute Problems: Active Problems COVID-19 (Acute) Shortness of breath (Acute) elevated troponins Hospital Course and Treatment Imaging Results: Clinical Impression(s) from Imaging Studies Chest X-Ray 05/31/20 12:40 IMPRESSION: Focal bibasilar infiltrates in the peripheral aspects of both right and left lower lobes. Electronically Signed: Jose May, at 12:56 EST , Service support , Operations: None Procedures: None Summary of Care Provided: The patient is a 74 year old M presents with shortness of breath and a low pulse ox at home. Patient was tested for COVID-19 and came back positive. Patient was treated with dexamethasone and remdesivir. Patient is overall improving and has had no further events during this hospitalization. Patient will be discharged with dexamethasone complete a 10-day course. Patient's and son are currently sick. Patient advised to have a 21-day quarantine from the onset of his symptoms. Patient had some minimally elevated troponins. Phil Campbell to be related with type II demand and recommend outpatient follow-up with cardiology and echocardiogram. Patient be started on aspirin 81 mg daily. [] Patient Problems: Active and Suspected Problems COVID-19 (Acute) Shortness of breath (Acute) - Physical Exam Vitals/I&O's: Vital Signs Temp Pulse Resp BP Pulse Ox 36.8 C 69 18 147/74 H 93 06/03/20 10:52 06/03/20 10:52 06/03/20 10:52 06/03/20 10:52 06/03/20 10:52 Oxygen Flow Rate (L/min) 2 Oxygen Delivery Method Room Air Weight: 113.897 kg Body Mass Index (BMI) 36.0 Intake and Output for Last 24 Hours 06/01/20 06/02/20 06/03/20 23:59 23:59 23:59 Intake Total 750 / 1350 2375 / 2775 700 / 700 Balance 750 / 1350 2375 / 2775 700 / 700 General: Alert, Cooperative, No apparent distress HEENT: Atraumatic, Normocephalic Oral: Moist Mucosa, No Gingival or Mucosal Lesions/ Ulcerations Neck: No Nodes, Thyroid Normal Size and Texture Lungs: Clear to auscultation, Normal air movement, No rhonchi, No wheeze Cardiovascular: Regular rate, Regular Rhythm, Normal S1, Normal S2 Abdomen: Bowel Sounds Present, Soft, Non Tender, Non-Distended, No Hepato-splenomegaly Psych/Mental Status: Normal Affect, Appropriate Laboratory Results 06/02/20 16:13: POC Glucose 182 H 06/02/20 23:07: POC Glucose 185 H 06/03/20 05:55: WBC 7.8, RBC 4.93, Hgb 14.2, Hct 42.6, MCV 86.4, MCH 28.8, MCHC 33.3, RDW Std Deviation 37.9, RDW Coeff of Bekah 11.9, Plt Count 250, MPV 9.9 06/03/20 05:55: Sodium 135 L, Potassium 4.0, Chloride 103, Carbon Dioxide 25.0, Anion Gap 7, BUN 19 H, Creatinine 0.73, Estim Creat Clear Calc 67.93, Est GFR (MDRD) Af Amer 135, Est GFR (MDRD) Non-Af 112, BUN/Creatinine Ratio 26.0 H, Glucose 115 H, Calcium 8.6, Total Bilirubin 0.40, AST 21, ALT 37, Alkaline Phosphatase 73, Total Protein 7.4, Albumin 2.9 L, Globulin 4.5 H, Albumin/Globulin Ratio 0.6 L 06/03/20 06:53: POC Glucose 120 H 06/03/20 11:06: POC Glucose 140 H Current Medications Citalopram Hydrobromide (Citalopram 20 Mg Tablet) 20 mg PO DAILY [facility] Last Admin: 06/03/20 11:00 Dose: 20 mg Documented by: Dexamethasone (Dexamethasone 4 Mg Tablet) 6 mg PO DAILY [facility] Stop: 06/09/20 10:01 Last Admin: 06/03/20 11:01 Dose: 6 mg Documented by: Empagliflozin (Empagliflozin 10 Mg Tablet) 10 mg PO DAILY [facility] Last Admin: 06/03/20 11:01 Dose: 10 mg Documented by: Enoxaparin Sodium (Enoxaparin 40 Mg/0.4 Ml Syringe) 40 mg SC BID [facility] Last Admin: 06/03/20 11:00 Dose: 40 mg Documented by: Guaifenesin (Guaifenesin 10 Ml Udc (200mg/10ml)) 10 ml PO Q4H PRN PRN PRN Reason: COUGH Last Admin: 06/01/20 21:49 Dose: 10 ml Documented by: Remdesivir 100 mg/ Sodium (Chloride) 250 mls @ 125 mls/hr IV DAILY [facility] Stop: 06/04/20 11:59 Last Admin: 06/03/20 11:33 Dose: 125 mls/hr Documented by: Ibuprofen (Ibuprofen 400 Mg Tablet) 400 mg PO DAILY PRN PRN PRN Reason: Pain 1-10 or Fever Insulin Human Lispro (Insulin Lispro 100 Unit/Ml Insuln.Pen) 0 unit SC [facility]; Protocol Last Admin: 06/03/20 11:07 Dose: Not Given Documented by: Linagliptin (Linagliptin 5 Mg Tablet) 5 mg PO DAILY [facility] Last Admin: 06/03/20 11:00 Dose: 5 mg Documented by: Ondansetron HCl (Ondansetron 4 Mg/2 Ml Vial) 4 mg IV Q8H PRN PRN PRN Reason: NAUSEA/VOMITING Senna/Docusate Sodium (Senna/Docusate Sodium 1 Tablet) 2 tablet PO DAILY PRN PRN PRN Reason: CONSTIPATION Sodium Chloride (0.9% Saline Lock 10 Ml Syringe) 10 - 40 ml IV UD PRN PRN Reason: SALINE FLUSH Last Admin: 06/01/20 10:45 Dose: 10 ml Documented by: Discharge Diet: No Restrictions Discharge Activity: Return to Normal Activity Call your doctor if you observe: Fever of 101 or Higher, Shortness of breath, Chest pain Home Medications: Medications to take at Discharge Citalopram [Celexa] 20 mg PO QHS 05/31/20 Empagliflozin [Jardiance] 10 mg PO QHS 05/31/20 Ibuprofen 400 mg PO DAILY PRN PRN 05/31/20 Sitagliptin Phosphate [Januvia] 100 mg PO QHS 05/31/20 Valacyclovir HCl [Valacyclovir] 500 mg PO DAILY PRN PRN 05/31/20 Aspirin 81 mg PO DAILY #1 tab.chew 06/03/20 Dexamethasone [Decadron] 6 mg PO DAILY #6 tab 06/03/20 Following Prescriptions Were Given to Patient: Aspirin 81 mg PO DAILY #1 tab.chew Dexamethasone [Decadron] 6 mg PO DAILY #6 tab Transmission Status: Received by [id number] Primary Care Physician: Randi Urbano DO [Primary Care Provider] - Within 2 Weeks Please Follow Up With: [facility] When: 2-4 weeks Disposition: Home Minutes spent on discharge:: 32 Patient Condition:: Good Medical Necessity - Tobacco Use Smoking Status: Former smoker Tobacco Use: Cigarettes, Pipe Meaningful Use Info Meaningful Use Diagnoses (Choose all that apply): None applicable Inpatient E&M: [id number] Disch Hosp
[2020-06-03 15:14] VITALS: BP 154/70; PULSE 74; RESP 18; TEMP 37.2; O2SAT 91; O2SAT 94
== END 2020-06-03 15:50 | disposition home or self-care (01) | DRG 177 ==
LOC: ED 13:00 → MS2 14:30
PROVIDERS: Internal Medicine Infectious Disease; Student in an Organized Health Care Education/Training Program; Admitting Provider Internal Medicine; Emergency Provider Emergency Medicine; PCP Internal Medicine
DX: U07.1 COVID-19 (principal); J12.89 Other viral pneumonia; R09.02 Hypoxemia; Z87.891 Personal history of nicotine dependence; E11.9 Type 2 diabetes mellitus without complications; F32.9 Major depressive disorder, single episode, unspecified; A60.00 Herpesviral infection of urogenital system, unspecified; Z79.84 Long term (current) use of oral hypoglycemic drugs; Z79.899 Other long term (current) drug therapy; R06.89 Other abnormalities of breathing; J45.909 Unspecified asthma, uncomplicated
CPT/HCPCS: 36415; 71045; 80048; 80053; 80076; 82962; 83880; 84484; 85025; 85027; 85379; 93005; 97802; 99285; J7050; 90686; A4216